=== PATIENT | female | born 1980 | race Two or more races ===

== ENCOUNTER 2020-07-30 20:11 | Emergency (ER) | payer MEDICAID ==
[~2020-07-30] VITALS: Ht 157.5 cm; Wt 90.0 kg
[~2020-07-30 20:11] MED LIST: NORG1TAB41 PO; TRAM50TA2 PO
[2020-07-30 20:27] VITALS: BP 147/92
== END 2020-07-30 20:43 | disposition left against medical advice (07) ==
LOC: ER 20:13
DX: Z20.822 Contact with and (suspected) exposure to COVID-19 (principal); Z53.21 Procedure and treatment not carried out due to patient leaving prior to being seen by health care provider

== ENCOUNTER 2020-08-20 16:32 | Emergency (ER) | payer MEDICAID ==
[~2020-08-20] VITALS: Ht 157.5 cm; Wt 81.8 kg
[2020-08-20 16:45] VITALS: BP 138/86
== END 2020-08-20 18:53 | disposition left against medical advice (07) ==
LOC: ER 16:33
DX: L02.411 Cutaneous abscess of right axilla (principal); Z53.21 Procedure and treatment not carried out due to patient leaving prior to being seen by health care provider

== ENCOUNTER → 2020-08-20 | Emergency (ER) | payer MEDICAID | END | disposition left against medical advice (07) | LOC: ER 20:06 | DX: L73.1 Pseudofolliculitis barbae (principal); Z53.21 Procedure and treatment not carried out due to patient leaving prior to being seen by health care provider ==

== ENCOUNTER 2022-03-22 14:40 | Emergency (ER) | payer MEDICAID | END 2022-03-22 18:09 | disposition left against medical advice (07) | LOC: ER 14:40 | DX: Z00.00 Encounter for general adult medical examination without abnormal findings (principal); Z53.21 Procedure and treatment not carried out due to patient leaving prior to being seen by health care provider ==

== ENCOUNTER 2023-04-23 14:02 | Emergency (ER) | payer MEDICAID ==
[~2023-04-23] VITALS: Ht 165.1 cm; Wt 86.4 kg
[2023-04-23 14:08] VITALS: BP 120/81; PULSE 78; RESP 18; TEMP 97.8; O2SAT 98
== END 2023-04-23 14:26 | disposition left against medical advice (07) ==
LOC: ER 14:03
DX: R20.0 Anesthesia of skin (principal); Z53.21 Procedure and treatment not carried out due to patient leaving prior to being seen by health care provider
CPT/HCPCS: 99281

== ENCOUNTER 2023-09-29 08:27 | Emergency (ER) | payer MEDICAID ==
[~2023-09-29] VITALS: Ht 157.5 cm; Wt 72.2 kg
[2023-09-29 08:31] VITALS: BP 157/103; PULSE 75; RESP 18; TEMP 97.8; O2SAT 97
[2023-09-29 09:39] LABS: BILIRUBIN,URINE NEGATIVE (Neg); CLARITY,URINE CLOUDY (Clear); COLOR,URINE YELLOW (Yellow); GLUCOSE, URINE NEGATIVE (Neg); KETONES,URINE NEGATIVE (Neg); LEUKOCYTE ESTERASE ,URINE MODERATE (Neg); NITRITES, URINE NEGATIVE (Neg); OCCULT BLOOD,URINE LARGE (Neg); PH,URINE 6.5 (4.8-8.0); PROTEIN,URINE 100 mg/dl (Neg); UROBILINOGEN,URINE 0.2 E.U/dL (0.2-1.0)
[2023-09-29 09:42] LABS: URINE HCG NEGATIVE (NEG)
[2023-09-29 10:09] LABS: UA COLLECTION TYPE CLN CATCH MIDSTREAM
[2023-09-29 10:10] LABS: SQUAMOUS EPITHELIAL CELL,UR FEW /LPF (FEW); WBC,URINE TNTC /HPF (0-4)
[2023-09-29 10:11] LABS: BACTERIA,URINE FEW /HPF (Neg); RBC,URINE TNTC /HPF (0-2)
[2023-09-29] MEDS ORDERED: CIPR250T26 PO (10:25)
[2023-09-29] MEDS: ciprofloxacin 250mg tablet PO ONE (10:53)
== END 2023-09-29 10:59 | disposition home or self-care (01) ==
LOC: ER 08:28
DX: N39.0 Urinary tract infection, site not specified (principal); Z88.8 Allergy status to other drugs, medicaments and biological substances; Z79.2 Long term (current) use of antibiotics; Z79.899 Other long term (current) drug therapy
CPT/HCPCS: 81001; 81025; 87077; 87088; 87186; 99284

== ENCOUNTER 2023-12-04 15:13 | Emergency (ER) | payer MEDICAID ==
[~2023-12-04] VITALS: Ht 160 cm; Wt 79.5 kg
[2023-12-04 15:17] VITALS: BP 175/103; PULSE 89; TEMP 98.7; O2SAT 99
[2023-12-04 16:20] VITALS: RESP 16
[2023-12-04 17:20] LABS: BASOPHILS % (AUTO) 0.4 % (0-1); EOSINOPHILS # (AUTO) 0.4 X10'3 (0-0.9); HEMATOCRIT 41.3 % (35.0-45.0); HEMOGLOBIN 14.1 g/dl (12.0-16.0); LYMPHOCYTES # (AUTO) 2.4 X10'3 (1.1-4.8); LYMPHOCYTES % (AUTO) 33.1 % (21-51); MEAN CORPUSCULAR HEMOGLOBIN 29.9 PG (27.0-31.0); MEAN PLATELET VOLUME 7.9 FL (7.4-10.4); MONOCYTES # (AUTO) 0.5 X10'3 (0-0.9); MONOCYTES % (AUTO) 7.2 % (2-12); NEUTROPHILS % (AUTO) 54.3 % (42-75); PLATELET COUNT 225 X10'3 (140-440); RED CELL DISTRIBUTION WIDTH 12.9 % (11.5-14.5); WHITE BLOOD COUNT 7.3 X10'3 (4.5-11.0)
[2023-12-04 17:27] LABS: ALANINE AMINOTRANSFERASE 18 U/L (12-78); ALBUMIN 3.8 G/DL (3.4-5.0); ALKALINE PHOSPHATASE 108 IU/L (46-116); ANION GAP 9 (8-16); ASPARTATE AMINO TRANSFERASE 35 U/L (10-37); BILIRUBIN,TOTAL 0.4 MG/DL (0.1-1.0); BLOOD UREA NITROGEN 14 MG/DL (7-18); BUN/CREATININE RATIO 17.5 (10.0-20.0); CALCIUM 8.7 MG/DL (8.5-10.1); CHLORIDE 106 MMOL/L (99-107); GLUCOSE 116 MG/DL (70-104); POTASSIUM 3.6 MMOL/L (3.5-5.1); SODIUM 139 MMOL/L (135-145); TOTAL CARBON DIOXIDE 24.3 MMOL/L (24-32); TOTAL PROTEIN 7.8 G/DL (6.4-8.2); eCRCL 73 ML/MIN; eGFR > 90 ML/MIN
[2023-12-04] MEDS ORDERED: iohexol 350MG/ML 100ml bottle IV ONE (17:46)
[2023-12-04 18:20] LABS: URINE HCG NEGATIVE (NEG)
== END 2023-12-04 20:33 | disposition home or self-care (01) ==
LOC: EEVIPCON 15:14 → ER 15:14
DX: T71.9XXA Asphyxiation due to unspecified cause, initial encounter (principal); R51.9 Headache, unspecified; Z59.00 Homelessness unspecified; Y04.8XXA Assault by other bodily force, initial encounter; Y93.89 Activity, other specified; Y92.89 Other specified places as the place of occurrence of the external cause; Y99.8 Other external cause status
CPT/HCPCS: 36415; 70450; 70496; 70498; 80053; 81025; 85025; 99285; Q9967

== ENCOUNTER 2024-03-29 17:43 | Emergency (ER) | payer MEDICAID ==
[~2024-03-29] VITALS: Ht 167.6 cm; Wt 68.2 kg
[2024-03-29] MEDS: ketorolac trometh 15mg/ml vial 15 MG/ML ML IM ONE (21:13)
[2024-03-29] MEDS: LIDOcaine 5% patch TP ONE (21:14)
[2024-03-29 21:37] VITALS: BP 126/70; PULSE 78; RESP 16; TEMP 97.9; O2SAT 98
[2024-03-29] MEDS ORDERED: LIDO700A32 TOP (21:40)
== END 2024-03-29 21:41 | disposition home or self-care (01) ==
LOC: ER 17:43
DX: M54.50 Low back pain, unspecified (principal); M79.642 Pain in left hand; Z88.8 Allergy status to other drugs, medicaments and biological substances
CPT/HCPCS: 73130; 96372; 99283; J1885

== ENCOUNTER 2024-05-28 13:17 | Emergency (ER) | payer MEDICAID ==
[~2024-05-28] VITALS: Ht 160 cm; Wt 69.0 kg
[~2024-05-28 13:17] MED LIST changes: +LIDO700A32 TOP
[2024-05-28 13:29] VITALS: BP 181/141; PULSE 91; RESP 16; TEMP 97.7; O2SAT 99
[2024-05-28] MEDS ORDERED: SULF1TAB45 PO (14:29)
== END 2024-05-28 14:39 | disposition left against medical advice (07) ==
LOC: ER 13:17
DX: L03.116 Cellulitis of left lower limb (principal); E11.621 Type 2 diabetes mellitus with foot ulcer; L97.821 Non-pressure chronic ulcer of other part of left lower leg limited to breakdown of skin; Z79.899 Other long term (current) drug therapy
CPT/HCPCS: 99283